=== PATIENT | female | born 1990 ===

== ENCOUNTER 2016-12-12 21:55 | Emergency (ER) | payer MEDICAID, OTHER ==
[~2016-12-12] VITALS: Ht 160 cm; Wt 154.6 kg
[~2016-12-12 21:55] MED LIST: BENZ-12 PO; LORA1TAB PO; METF10002 PO; OMEP-113 PO; OXYC-284 PO; PRE10 PO; PSEU240T6 PO
[2016-12-12 22:19] VITALS: BP 132/86; PULSE 102; RESP 18; O2SAT 97
[2016-12-12 23:06] LABS: MONOCYTES % (AUTO) 5.3 % (4-12); Platelet Count 430 bil/L (150-400)
[2016-12-12 23:10] LABS: BASOPHILS % (AUTO) 0.2 % (0-3); EOSINOPHILS % (AUTO) 2.2 % (0-5); Mean Corpuscular Hemoglobin 24.7 pg (27.0-35.0); Mean Corpuscular Volume 76.6 fL (81-100); NEUTROPHILS % (AUTO) 76.8 % (40-74)
[2016-12-12 23:28] LABS: Magnesium 2.2 mg/dL (1.6-2.6)
--- NOTE | 2016-12-12 23:45 | ED.REPORT ---
HPI-Abd Pain F Under 40 Date of Service Dec 12, 2016 ED Provider: Med Norwood MD Pt is a 26 y/o female w/ a hx of diabetes, presenting to the ED via EMS c/o sudden-onset sharp, band-like epigastric abdominal pain with mild radiation to the back onset 20:00 tonight. She c/o associated nausea, vomiting x1, chills. She denies fever, diarrhea, constipation, hematochezia, dysuria, hematuria. It is unknown if her pain is exacerbated by food. Her last menstrual period ended 2 -3 days ago. She believes her last bowel movement was earlier today but she is unsure. Abdominal surgeries: Cholecystectomy Nursing Notes Stated Complaint: ABDOMINAL PAIN Chief Complaint: Female Abdominal Pain Nursing Notes Reviewed: Yes Allergies: Coded Allergies: karo (Unverified Allergy, Unknown, 12/12/16) Scheduled Metformin (Metformin) 1,000 Mg Tablet 1,000 MG PO BIDWM Omeprazole Magnesium (Omeprazole) 20 Mg Capsule.dr 20 MG PO DAILY Prednisone (PredniSONE) 10 Mg Tablet 15 MG PO DAILY Pseudoephedrine HCl (Sudafed 24-Hour) 240 Mg Tab.er.24h 240 MG PO MORNING Scheduled PRN Benzonatate (Tessalon Perle) 100 Mg Capsule 100 MG PO TID PRN PRN For Cough Lorazepam (Lorazepam) 1 Mg Tablet 1 MG PO TID PRN PRN For Anxiety Oxycodone HCl/Acetaminophen 5-325 (Percocet 5-325) 1 Each Tablet 1 TABLET PO Q4H PRN PRN For Pain General Time Seen by MD: 23:32 Chief Complaint Abdominal pain Hx Obtained From: Patient Arrived By: Walk-in Sudden in Onset?: Yes Onset Occurred: 1 - 4 hours ago Symptom Duration: Since onset Progression since Onset: Unchanged Location: : Epigastric Quality: Painful Radiation: : Back Severity: Current: Moderate Severity: Maximum: Moderate Past Medical History Past Medical History Diabetes Asthma Reports: Obesity Past Surgical History Cholecystectomy Smoking History Current Every Day Smoker Social History Alcohol Use: Denies alcohol use Drug Use: Denies drug use Other Social History: Local resident Ambulatory Status Independent Review of Systems Constitutional: Reports: Chills, Denies: Fever GI: Reports: Abdominal pain, Nausea, Vomiting, Denies: Constipation, Diarrhea, Hematemesis, Hematochezia Complete sys rev & neg: except as marked. Physical Exam Initial Vital Signs Vital Signs (First) Date Time Temp Pulse Resp B/P Pulse Ox O2 Delivery O2 Flow Rate FiO2 12/12/16 22:19 36.4 102 18 132/86 97 Room Air Initial VS: Reviewed, Vital signs abnormal Head / Eyes: Atraumatic, Normocephalic, PERRL ENT: Mucous membranes moist, Conjunctiva normal, No scleral icterus Neck: Supple, Full range of motion Extremities: Vascular intact, Neuro intact, No swelling, No tenderness Skin: Warm, Dry, No cyanosis Neurologic: Alert, Oriented, Nonfocal Psychiatric: Mood/affect normal, Behavior normal, Normal thought content General/Constitutional: Awake, Alert, No acute distress, Cooperative, Not toxic appearing Respiratory / Chest: Atraumatic, Breath sounds NL, Breath sounds = bilat, No respiratory distress, No rales, No rhonchi, No wheezing, No retractions, No stridor, No chest tenderness, No chest wall deformity, No crepitus Cardiovascular: Regular rhythm, Heart sounds NL, No gallop, No murmurs, No rubs , Cap refill not delayed, Peripheral circulation NL Heart Rate / Rhythm: Positive: Tachycardia (mild) Abdomen: Atraumatic, Soft, No guarding, No rebound, No distention, No palpable mass Tenderness of the upper abdomen Back: Full range of motion, Painless range of motion Interpretation & Diagnostics Lab Results Interpretation Result Diagram: 12/12/16 2300 12/12/16 2300 Test 12/12/16 23:00 White Blood Count 18.4th/mm3 (3.8-10.1) Red Blood Count 6.03mil/mm3 (3.90-5.20) Hemoglobin 14.9g/dL (12.0-15.6) Hematocrit 46.2% (35.0-46.0) Mean Corpuscular Volume 76.6fL (81-100) Mean Corpuscular Hemoglobin 24.7pg (27.0-35.0) Mean Corpuscular Hemoglobin Concent 32.3% (32.0-37.0) Red Cell Distribution Width 15.9% (12.3-15.4) Platelet Count 430bil/L (150-400) Neutrophils (%) (Auto) 76.8% (40-74) Lymphocytes (%) (Auto) 15.1% (14-46) Monocytes (%) (Auto) 5.3% (4-12) Eosinophils (%) (Auto) 2.2% (0-5) Basophils (%) (Auto) 0.2% (0-3) Hematology Comments Sodium Level 142mEq/L (134-144) Potassium Level 4.0mEq/L (3.5-5.2) Chloride Level 102mEq/L (97-108) Carbon Dioxide Level 26mmol/L (18-29) Blood Urea Nitrogen 13mg/dL (6-20) Creatinine 0.66mg/dL (0.57-1.00) Estimat Glomerular Filtration Rate 156mL/min (>59) Glucose Level 124mg/dL (60-99) Calcium Level 9.4mg/dL (8.5-10.1) Magnesium Level 2.2mg/dL (1.6-2.6) Total Bilirubin 0.3mg/dL (0.0-1.2) Aspartate Amino Transf (AST/SGOT) 19U/L (0-50) Alanine Aminotransferase (ALT/SGPT) 18U/L (0-32) Alkaline Phosphatase 97U/L (25-150) Total Protein 8.9g/dL (6.4-8.4) Albumin 4.4g/dL (3.4-5.0) Lipase 25U/L (13-60) Hold Leos Top Tube Received (Received) Re-Eval/Medical Decision Re-Evaluation/Progress : Time of Eval: 23:58 Re-Evaluation/Progress Note: Informed pt of shift-change signout. Awaiting CT. Counseled Regarding: Diagnosis, Lab results Discharge & Departure Primary Impression: Abdominal pain Abdominal location: epigastric Qualified Code: R10.13 - Epigastric pain Discharge Condition All VS Reviewed: Yes Condition: Stable Referrals: Tomeka Jones PA-C (PCP) Care Transferred to: Dr. Hero Ramirez DO Care Transferred at: 00:00 Zana Attestation Portions of this note were transcribed by Kuldeep Corona. I, Dr. Norwood personally performed the history, physical exam and medical decision-making; I reviewed and confirmed the accuracy of the information in the transcribed note. Signed by Zana Garcia, 12/12/16 - 1906 copies to: Tomeka Jones PA-C, Kirk H MD Dec 12, 2016 23:44 KULDEEP CORONA Dec 12, 2016 23:53
[2016-12-12] MEDS ORDERED: Pantoprazole 4 mg/mL 10 mL Inj IVPUSH ONE (23:50)
[2016-12-13] MEDS ORDERED: 0.9% Sodium Chloride 1,000 ML IV ONE ×2 (00:10→01:50)
[2016-12-13] MEDS: HYDROmorphone 1 mg/mL Inj IVPUSH PRN ×2 (00:23→01:43)
[2016-12-13] MEDS: Ondansetron 2 mg/mL 2 mL Inj IVPUSH PRN ×2 (00:24→01:43)
[2016-12-13 03:51] LABS: APPEARANCE,URINE CLEAR (CLEAR,HAZY); COLOR,URINE YELLOW (YELLOW); OCCULT BLOOD,URINE NEGATIVE (NEGATIVE); PH,URINE 6.5 (5.0-8.0); UROBILINOGEN,URINE NORMAL (NORMAL)
[2016-12-13] MEDS ORDERED: HYDROmorphone 0.5 mg/0.5 mL iSecure Syringe IVPUSH ONE (04:05)
[2016-12-13] MEDS ORDERED: _Ondansetron ODT 4 mg Tablet PO PRN (04:05)
[2016-12-13] MEDS ORDERED: _HYDROcodone/APAP 5-325 mg Tablet PO PRN (04:05)
[2016-12-13] MEDS ORDERED: Ondansetron 2 mg/mL 2 mL Inj IVPUSH ONE (04:05)
[2016-12-13 05:07] VITALS: BP 126/68; RESP 18; O2SAT 98
--- NOTE | 2016-12-13 11:09 | DRSVH ---
PROCEDURE: CT ABDOMEN AND PELVIS WITH CONTRAST (PNL-7102) INDICATIONS: upper abdominal pain TECHNIQUE: After the administration of intravenous contrast, 5 mm thick sections acquired from the diaphragm to the symphysis. 5 mm coronal and sagittal reformats were acquired. For radiation dose reduction, the following was used: automated exposure control, adjustment of mA and/or kV according to patient siz e. COMPARISON: [facility], CT, CT ABD PELVIS W CON, 03/14/2016, 1:57. FINDINGS: Image quality: Excellent considering body habitus. ABDOMEN: Lung bases: Lung bases are clear. Heart size is normal. Solid organs: Liver and spleen are normal in size and enhancement. Gallbladder has been previously resected. Biliary system is non dilated. Pancreas enhances normally. No adrenal nodules. Kidneys demonstrate normal size and enhancement, without hydronephrosis. Peritoneum and bowel: Bowel loops demonstrate normal wall thickness and caliber. No free fluid or a ir. Nodes and vessels: No retroperitoneal or mesenteric adenopathy by size criteria. Aorta and inferior vena cava are normal in size. Miscellaneous: A previously identified supraumbilical ventral hernia containing omentum is again seen , stable over time from 2015, and projecting through the body wall defect measuring up to 2.3 cm trevizo sverse and approximately 1.3 cm craniocaudad. There is slight stranding within the omental fat at th e defect, and immediately adjacent. This however has not changed from the comparison abdominal CT fr om 03/14/16. PELVIS: Genitourinary: Bladder wall thickness is normal. Miscellaneous: No inguinal hernias or adenopathy. Bones: No suspicious bony lesions. No vertebral body compression fractures. IMPRESSION: Prior cholecystectomy. Stable appearing omental herniation through the exact midline of the supraumbilical rectus sheath, through a defect measuring up to 2.3 x 1.3 cm in without definite e vidence of change from March of last year, that would indicate presence of strangulation of the omentum involved. Note: These findings are concordant with the preliminary interpretation. Dictated by: Rodrigue Garcia M.D. on 12/13/2016 at 11:00 Approved by: Rodrigue Garcia M.D. on 12/13/2016 at 11:08
== END 2016-12-13 05:13 | disposition home or self-care (01) ==
LOC: EDUNIT# 21:55 → EDBD 21:55 → SED 21:55
DX: R10.13 Epigastric pain (principal); E11.9 Type 2 diabetes mellitus without complications; J45.909 Unspecified asthma, uncomplicated; F17.200 Nicotine dependence, unspecified, uncomplicated; Z91.018 Allergy to other foods; Z79.84 Long term (current) use of oral hypoglycemic drugs
CPT/HCPCS: 36415; 74177; 80053; 81000; 83690; 83735; 84702; 85025; 96361; 96374; 96375; 96376; 99285; J1170; J1200; J2405; J7030; Q9967

== ENCOUNTER 2017-06-28 23:48 | Emergency (ER) | payer MEDICAID, OTHER ==
[~2017-06-28] VITALS: Ht 160 cm; Wt 151.8 kg
[2017-06-28 23:55] VITALS: BP 115/80; PULSE 80; RESP 20; O2SAT 96
--- NOTE | 2017-06-29 00:25 | ED.REPORT ---
HPI-Abd Pain F Under 40 Date of Service Jun 29, 2017 ED Provider: Haris Macias MD The pt is a 27 y/o female with a hx of DM who presents to the ED complaining of abdominal pain around a hernia, onset 11 hours ago. She denies nausea, vomiting , diarrhea, constipation and any other sx at this time. Nursing Notes Stated Complaint: ABDOMINAL/HERNIA PAIN Chief Complaint: Female Abdominal Pain Nursing Notes Reviewed: Yes Allergies: Coded Allergies: karo (Unverified Allergy, Unknown, 12/12/16) Uncoded Allergies: VANILLA (Allergy, Unknown, 06/28/17) Scheduled Cephalexin (Cephalexin) 500 Mg Capsule 500 MG PO TID Metformin (Metformin) 1,000 Mg Tablet 1,000 MG PO BIDWM Omeprazole Magnesium (Omeprazole) 20 Mg Capsule.dr 20 MG PO DAILY Prednisone (PredniSONE) 10 Mg Tablet 15 MG PO DAILY Pseudoephedrine HCl (Sudafed 24-Hour) 240 Mg Tab.er.24h 240 MG PO MORNING Scheduled PRN Benzonatate (Tessalon Perle) 100 Mg Capsule 100 MG PO TID PRN PRN For Cough Lorazepam (Lorazepam) 1 Mg Tablet 1 MG PO TID PRN PRN For Anxiety Oxycodone HCl/Acetaminophen 5-325 (Percocet 5-325) 1 Each Tablet 1 TABLET PO Q4H PRN PRN For Pain General Time Seen by MD: 00:24 Chief Complaint Abdominal pain Hx Obtained From: Patient Arrived By: Walk-in Sudden in Onset?: Yes Onset Occurred: 9 - 12 hours ago Symptom Duration: Since onset Location: : Periumbilical Quality: Painful Radiation: : Does not radiate Severity: Current: Moderate Severity: Maximum: Moderate Recent Healthcare: Recent doctor visit Past Medical History Past Medical History Diabetes Asthma Reports: Obesity Past Surgical History Cholecystectomy Smoking History Current Every Day Smoker Social History Alcohol Use: Denies alcohol use Drug Use: Denies drug use Other Social History: Local resident Ambulatory Status Independent Review of Systems GI: Reports: Abdominal pain, Denies: Constipation, Diarrhea, Nausea, Vomiting Complete sys rev & neg: except as marked. Physical Exam Initial Vital Signs Vital Signs (First) Date Time Temp Pulse Resp B/P Pulse Ox O2 Delivery O2 Flow Rate FiO2 06/28/17 23:55 36.9 80 20 115/80 96 Room Air Initial VS: Reviewed Head / Eyes: Atraumatic, Normocephalic Neck: Supple, Non-tender, Full range of motion Extremities: Vascular intact, Neuro intact, No swelling, No tenderness Skin: Warm, Dry, No cyanosis Neurologic: Alert, Oriented, Nonfocal General/Constitutional: Awake, Alert, Cooperative Appearance / Presentation: Positive: Obese, morbidly Exam limited by obesity Respiratory / Chest: Atraumatic, Breath sounds NL, Breath sounds = bilat, No respiratory distress, No rales, No rhonchi, No wheezing Cardiovascular: Heart rate NL, Regular rhythm, Heart sounds NL, No gallop, No murmurs, No rubs Abdomen: Atraumatic, Soft Midline tender mass just above the umbilicus Midline incarcerated hernia Back: Atraumatic, Full range of motion, Painless range of motion Interpretation & Diagnostics Lab Results Interpretation Result Diagram: 06/29/17 0053 06/29/17 0053 Test 06/29/17 00:53 06/29/17 01:40 White Blood Count 14.3th/mm3 (3.8-10.1) Red Blood Count 5.18mil/mm3 (3.90-5.20) Hemoglobin 13.1g/dL (12.0-15.6) Hematocrit 40.4% (35.0-46.0) Mean Corpuscular Volume 78.0fL (81-100) Mean Corpuscular Hemoglobin 25.3pg (27.0-35.0) Mean Corpuscular Hemoglobin Concent 32.4% (32.0-37.0) Red Cell Distribution Width 15.5% (12.3-15.4) Platelet Count 404bil/L (150-400) Neutrophils (%) (Auto) 62.3% (40-74) Lymphocytes (%) (Auto) 29.4% (14-46) Monocytes (%) (Auto) 5.2% (4-12) Eosinophils (%) (Auto) 2.7% (0-5) Basophils (%) (Auto) 0.1% (0-3) Sodium Level 141mEq/L (134-144) Potassium Level 3.9mEq/L (3.5-5.2) Chloride Level 104mEq/L (97-108) Carbon Dioxide Level 24mmol/L (18-29) Blood Urea Nitrogen 10mg/dL (6-20) Creatinine 0.62mg/dL (0.57-1.00) Estimat Glomerular Filtration Rate 167mL/min (>59) Glucose Level 104mg/dL (60-99) Calcium Level 9.0mg/dL (8.5-10.1) Magnesium Level 2.1mg/dL (1.6-2.6) Total Bilirubin 0.3mg/dL (0.0-1.2) Aspartate Amino Transf (AST/SGOT) 14U/L (0-50) Alanine Aminotransferase (ALT/SGPT) 14U/L (0-32) Alkaline Phosphatase 79U/L (25-150) Total Protein 7.5g/dL (6.4-8.4) Albumin 4.0g/dL (3.4-5.0) Lipase 17U/L (13-60) Urine Color Yellow (YELLOW) Urine Appearance Slightly cloudy Urine pH 6.5 (5.0-8.0) Urine Specific Payne 1.015 (1.003-1.035) Urine Protein Negativemg/dL (NEG,TRACE) Urine Glucose (UA) Negativemg/dL (NEGATIVE) Urine Ketones Negativemg/dL (NEGATIVE) Urine Occult Blood Large (NEGATIVE) Urine Nitrite Negative (NEGATIVE) Urine Bilirubin Negative (NEGATIVE) Urine Urobilinogen Normalmg/dL (NORMAL) Urine Leukocyte Esterase Small (NEGATIVE) Urine RBC 11-50/hpf (0-2) Urine WBC 11-50/hpf (0-5) Urine Epithelial Cells Moderate/hpf (NONE-MOD) Urine Crystals None seen (NONE SEEN) Urine Bacteria Moderate/hpf (NONE-FEW) Urine Hyaline Casts None/lpf (NONE) Urine Granular Casts None seen (NONE SEEN) Urine Waxy Casts None seen (NONE SEEN) Urine Red Blood Cell Casts None seen (NONE SEEN) Urine White Blood Cell Casts None seen (NONE SEEN) Urine Mucus None seen (None Seen) Urine Trichomonas None seen (NONE SEEN) Urine Yeast None (NONE SEEN) Urinalysis Comment None Urine Culture Reflexed Indicated Hold Urine Received (Received) CT Abd / Pelvis Interpretation Ventral hernia containing fat. There is increased attenuation of the fat within the hernia sac, this may represent fat necrosis. Signed by Dr. Akin Garcia 06/29/17 01:56 Study type: Abdominal CT IV contrast Interpretation / Wet Read by: Interpret - Radiologist Re-Eval/Medical Decision Med Decision/Clinical Course 27-year-old obese female with a ventral abdominal hernia presents with abdominal pain. She is found to have a urinary tract infection and this was treated. Additionally CT scan showed an area of infarcted fat in the hernia. This will be treated conservatively with anti-inflammatory medications. She will follow-up with Dr. Ochoa as needed for increasing symptoms. Source of Hx: Old records Re-Evaluation/Progress #1: Time of Eval: 02:15 Re-Evaluation/Progress Note: Rechecked pt. Discussed lab and imaging results. The pt understands. All questions answered. Re-Evaluation/Progress #2: Time of Eval: 03:45 Re-Evaluation/Progress Note: Rechecked pt. Discussed diagnosis and plan to discharge. Pt understands and agrees with the plan. F/U instruction and RTER warning given. All questions addressed. Counseled Regarding: Diagnosis, Need for follow-up, When/why to return to ED Discharge & Departure Primary Impression: UTI (urinary tract infection) Urinary tract infection type: acute cystitis Hematuria presence: with hematuria Qualified Code: N30.01 - Acute cystitis with hematuria Additional Impressions: Abdominal hernia Hernia type: ventral Obstruction and gangrene presence: without obstruction or gangrene Qualified Code: K43.9 - Ventral hernia without obstruction or gangrene Fat necrosis Disposition: Home Discharge Condition All VS Reviewed: Yes Condition: Stable Patient Instructions: Urinary Tract Infection in Women (ED) Additional Instructions: 1) You have a urine infection. You received Rocephin (ceftriaxone) in the emergency room. A prescription was sent for cephalexin 500 mg by mouth 3 times a day, #20. 2) the pain in the hernia appears to be due to focal fat necrosis. This is uncomfortable but not dangerous. Anti-inflammatory medicines would be helpful. If the pain worsens significantly you need to be reevaluated. Referrals: Tomeka Jones PA-C (PCP) Scribe Attestation Portions of this note were transcribed by Shoshana King. I,, personally performed the history,physical exam and medical decision-making;I reviewed and confirmed the accuracy of the information in the transcribed note. Signed by Zana Oliver. 06/29/17 copies to: Tomeka Jones PA-C, Howard L MD Jun 29, 2017 00:25 Shoshana King Jun 29, 2017 00:33
[2017-06-29 00:55] LABS: BASOPHILS % (AUTO) 0.1 % (0-3); EOSINOPHILS % (AUTO) 2.7 % (0-5); MONOCYTES % (AUTO) 5.2 % (4-12); Mean Corpuscular Hemoglobin 25.3 pg (27.0-35.0); NEUTROPHILS % (AUTO) 62.3 % (40-74); Platelet Count 404 bil/L (150-400)
[2017-06-29 01:23] LABS: Magnesium 2.1 mg/dL (1.6-2.6)
[2017-06-29 02:01] LABS: APPEARANCE,URINE SLIGHTLY CLOUDY (CLEAR,HAZY); COLOR,URINE YELLOW (YELLOW); OCCULT BLOOD,URINE LARGE (NEGATIVE); PH,URINE 6.5 (5.0-8.0); UROBILINOGEN,URINE NORMAL (NORMAL)
[2017-06-29] MEDS ORDERED: cefTRIAXone Inj 2,000 MG in Dextrose 5% Minibag Plus 50 ML IV ONE (02:20)
[2017-06-29] MEDS ORDERED: CEPH500C PO (03:50)
[2017-06-29 04:02] VITALS: BP 115/80; PULSE 80; RESP 20; O2SAT 96
--- NOTE | 2017-06-29 09:23 | DRSVH ---
PROCEDURE: CT ABDOMEN AND PELVIS WITH CONTRAST (PNL-7102) INDICATIONS: incarcerated abd hermnia TECHNIQUE: After the administration of intravenous contrast, 5 mm thick sections acquired from the diaphragm to the symphysis. 5 mm coronal and sagittal reformats were acquired. For radiation dose reduction, the following was used: automated exposure control, adjustment of mA and/or kV according to patient zhou escalante. COMPARISON: [facility], CT, CT ABD PELVIS W CON, 12/13/2016, 1:04. FINDINGS: Image quality: Excellent. ABDOMEN: Lung bases: Lung bases are clear. Heart size is normal. Solid organs: Liver and spleen are normal in size and enhancement. Gallbladder has been removed. B iliary system is non dilated. Pancreas enhances normally. No adrenal nodules. Kidneys demonstrate normal size and enhancement, without hydronephrosis. Peritoneum and bowel: Bowel loops demonstrate normal wall thickness and caliber. No free fluid or a ir. Nodes and vessels: No retroperitoneal or mesenteric adenopathy by size criteria. Aorta and inferior vena cava are normal in size. Miscellaneous: Prominent midline supraumbilical fat containing ventral hernia. Size is stable, with t he exception of mild increased attenuation of the fat within the hernia sac. PELVIS: Genitourinary: Bladder wall thickness is normal. Miscellaneous: No inguinal hernias or adenopathy. Bones: No suspicious bony lesions. No vertebral body compression fractures. IMPRESSION: 1. Persistent ventral fat containing hernia with increased attenuation of fat within the hernia sac. This may represent fat necrosis. 2. Hepatic steatosis. Dictated by: Myra Crews M.D. on 06/29/2017 at 9:18 Approved by: Myra Crews M.D. on 06/29/2017 at 9:21
== END 2017-06-29 04:00 | disposition home or self-care (01) ==
LOC: SED 23:48
DX: N30.01 Acute cystitis with hematuria (principal); K43.9 Ventral hernia without obstruction or gangrene; E11.9 Type 2 diabetes mellitus without complications; J45.909 Unspecified asthma, uncomplicated; F17.200 Nicotine dependence, unspecified, uncomplicated; Z91.018 Allergy to other foods; Z79.84 Long term (current) use of oral hypoglycemic drugs
CPT/HCPCS: 36415; 74177; 80053; 81000; 81025; 83690; 83735; 85025; 87086; 87088; 96365; 99285; J0696; Q9967